=== PATIENT | female | born 1965 | race Hispanic/Latino ===

== ENCOUNTER 2017-12-31 21:18 | Emergency (ER) | payer MEDICAID ==
[~2017-12-31 21:18] MED LIST: AMBR5TAB3 PO; BUSP15TA3 PO; CYCL5TAB PO; DEXL60CA3 PO; HYDR200T4 PO; LACT10SO PO; LEVO75 PO; METO10TA3 PO; MULT-512 PO; MYCO500T5 PO; OCEAN NASAL; OLOP2.5D OU; PRED5TAB PO; PROP20TA7 PO; SPIR50TA5 PO; TADA5TAB3 PO; TRAM50TA4 PO; TRAZ-187 PO
[2017-12-31 23:38] LABS: BASOPHILS % (AUTO) 0.3 % (0.0-5.0); LYMPHOCYTES % (AUTO) 5.1 % (21.0-51.0); MEAN CORPUSCULAR HEMOGLOBIN 31.3 pg (27.0-33.0); MEAN CORPUSCULAR HGB CONC 34.5 g/dL (32.0-36.0); MEAN CORPUSCULAR VOLUME 90.8 fL (79-99); MONOCYTES % (AUTO) 5.8 % (3.0-13.0); NEUTROPHILS % (AUTO) 88.8 % (40.0-77.0); PLATELET COUNT (AUTO) 189 K/uL (130-400); RED BLOOD CELL COUNT(AUTO) 3.97 MIL/uL (4.00-5.50); RED CELL DISTRIBUTION WIDTH 14.5 % (11.0-15.5); WHITE BLOOD COUNT (AUTO) 9.5 K/uL (4.8-10.8)
[2017-12-31 23:40] LABS: CREATININE 0.9 mg/dL (0.5-1.5); POTASSIUM 4.4 mmol/L (3.5-5.1)
[2018-01-01] MEDS ORDERED: METHYLPREDNISOLONE SOD SUCC 125MG/2ML VIAL ONE (00:48)
== END 2018-01-01 02:31 | disposition home or self-care (01) ==
LOC: EDH 21:18
DX: J02.9 Acute pharyngitis, unspecified (principal); R60.0 Localized edema; M32.9 Systemic lupus erythematosus, unspecified; M19.90 Unspecified osteoarthritis, unspecified site; Z88.6 Allergy status to analgesic agent
CPT/HCPCS: 36415; 70490; 80048; 85025; 87040; 87880; 96374; 99285; J2930

== ENCOUNTER 2018-01-03 19:05 | Emergency (ER) | payer MEDICAID ==
[2018-01-03 19:57] LABS: BASOPHILS % (AUTO) 0.3 % (0.0-5.0); EOSINOPHILS % (AUTO) 0.1 % (0.0-8.0); HEMATOCRIT 39.4 % (36-48); LYMPHOCYTES % (AUTO) 6.2 % (21.0-51.0); MEAN CORPUSCULAR HEMOGLOBIN 30.4 pg (27.0-33.0); MEAN CORPUSCULAR HGB CONC 33.5 g/dL (32.0-36.0); MEAN CORPUSCULAR VOLUME 90.8 fL (79-99); MONOCYTES % (AUTO) 6.3 % (3.0-13.0); NEUTROPHILS % (AUTO) 87.1 % (40.0-77.0); PLATELET COUNT (AUTO) 187 K/uL (130-400); RED BLOOD CELL COUNT(AUTO) 4.34 MIL/uL (4.00-5.50); WHITE BLOOD COUNT (AUTO) 10.8 K/uL (4.8-10.8)
[2018-01-03 20:06] LABS: CREATININE 1.3 mg/dL (0.5-1.5); POTASSIUM 4.3 mmol/L (3.5-5.1)
[2018-01-03 20:07] LABS: INR 1.12 (0.85-1.15); PARTIAL THROMBOPLASTIN TIME 27.8 SEC (26.3-35.5); PROTHROMBIN TIME 11.7 SEC (9.6-11.6)
[2018-01-03 20:19] LABS: ALBUMIN 2.9 g/dL (3.5-5.0); CREATINE KINASE MB 0.8 ng/mL (0.5-3.6); CRP QUANTITATIVE 18.7 mg/L (0.00-9.0); TOTAL PROTEIN, SERUM 6.2 g/dL (6.0-8.3)
[2018-01-03 20:59] LABS: APPEARANCE,URINE Clear (CLEAR); BILIRUBIN,URINE Small (NEGATIVE); COLOR,URINE Dark Yellow (YELLOW); GLUCOSE, URINE (UA) Negative (NEGATIVE); KETONES,URINE Negative (NEGATIVE); LEUKOCYTE ESTERASE ,URINE Small (NEGATIVE); NITRATE,URINE Negative (NEGATIVE); OCCULT BLOOD,URINE Negative (NEGATIVE); PROTEIN,URINE Trace (NEGATIVE)
[2018-01-03 21:01] LABS: ERYTHROCYTE SEDIMENTATION RATE 5 MM/HR (0-15)
[2018-01-03 21:37] LABS: RBC,URINE 0-1 /HPF (0-1)
[2018-01-03 21:38] LABS: BACTERIA,URINE Few /HPF (None Seen); MUCUS,URINE Few LPF (None Seen); SQUAMOUS EPITHELIAL CELL,UR Few /HPF (0-2)
[2018-01-03] MEDS ORDERED: ONDANSETRON HCL MDV 20ML 2 MG/ML VIAL ONE (22:24)
== END 2018-01-03 23:02 | disposition home or self-care (01) ==
LOC: EDH 19:05
DX: K92.2 Gastrointestinal hemorrhage, unspecified (principal); N39.0 Urinary tract infection, site not specified; R03.0 Elevated blood-pressure reading, without diagnosis of hypertension; K74.60 Unspecified cirrhosis of liver; M19.90 Unspecified osteoarthritis, unspecified site; Z79.82 Long term (current) use of aspirin
CPT/HCPCS: 36415; 80053; 81001; 82270; 82550; 82553; 83690; 84484; 85014; 85018; 85025; 85610; 85651; 85730; 86140; 87088; 93005; 96365; 96375

== ENCOUNTER 2018-02-03 20:14 | Inpatient (IN) | payer MEDICAID ==
[~2018-02-03] VITALS: Ht 154.9 cm; Wt 90.3 kg
[2018-02-03] MEDS ORDERED: DEXTROSE 50%-WATER 50 ML DISP.SYRIN IV ONE (20:29)
[2018-02-03] MEDS ORDERED: SODIUM CHLORIDE 0.9% 500ML 500 ML IV ONE (20:32)
[2018-02-03 20:41] LABS: BASOPHILS % (AUTO) 0.3 % (0.0-5.0); HEMATOCRIT 31.1 % (36-48); LYMPHOCYTES % (AUTO) 5.8 % (21.0-51.0); MEAN CORPUSCULAR HEMOGLOBIN 32.4 pg (27.0-33.0); MEAN CORPUSCULAR HGB CONC 35.5 g/dL (32.0-36.0); MEAN CORPUSCULAR VOLUME 91.4 fL (79-99); MONOCYTES % (AUTO) 6.2 % (3.0-13.0); NEUTROPHILS % (AUTO) 87.7 % (40.0-77.0); PLATELET COUNT (AUTO) 167 K/uL (130-400); WHITE BLOOD COUNT (AUTO) 9.8 K/uL (4.8-10.8)
[2018-02-03 20:57] LABS: ALBUMIN 2.5 g/dL (3.5-5.0); BILIRUBIN,TOTAL 0.8 mg/dL (0.2-1.0); CREATININE 0.9 mg/dL (0.5-1.5); MAGNESIUM 1.4 mg/dL (1.80-2.40); POTASSIUM 5.5 mmol/L (3.5-5.1); TOTAL PROTEIN, SERUM 5.6 g/dL (6.0-8.3)
[2018-02-03] MEDS ORDERED: DEXTROSE 10%-WATER 1,000 ML IV ONE (21:23)
[2018-02-03] MEDS ORDERED: SODIUM POLYSTYRENE SULFONATE 15 GM/60 ML ML ONE (22:21)
[2018-02-03] MEDS ORDERED: ALBUTEROL SULFATE 0.083% 2.5 MG/3 ML INH IH ONE (22:24)
[2018-02-03] MEDS ORDERED: SODIUM CHLORIDE 0.9% 1000ML 1,000 ML IV SCH (23:34)
[2018-02-03 23:44] LABS: HEMOGLOBIN A1C 4.4 % (4.0-6.0)
[2018-02-03] MEDS ORDERED: DEXTROSE 50%-WATER 50 ML DISP.SYRIN IV PRN (23:45)
[2018-02-03] MEDS ORDERED: GLUCAGON 1MG KIT 1 MG ML IM PRN (23:45)
[2018-02-03] MEDS ORDERED: MAGNESIUM 2GM PREMIX 50ML 50 ML IV SCH (23:45)
[2018-02-03] MEDS ORDERED: ONDANSETRON HCL MDV 20ML 2 MG/ML VIAL IV PRN (23:45)
[2018-02-03 23:47] LABS: APPEARANCE,URINE Clear (CLEAR); BILIRUBIN,URINE Negative (NEGATIVE); COLOR,URINE Yellow (YELLOW); GLUCOSE, URINE (UA) Negative (NEGATIVE); KETONES,URINE Negative (NEGATIVE); LEUKOCYTE ESTERASE ,URINE Trace (NEGATIVE); NITRATE,URINE Negative (NEGATIVE); OCCULT BLOOD,URINE Negative (NEGATIVE); PROTEIN,URINE Negative (NEGATIVE); UROBILINOGEN,URINE 0.2 mg/dL (0.2-1.0)
[2018-02-04 00:03] LABS: BACTERIA,URINE Rare /HPF (None Seen); RBC,URINE None Seen /HPF (0-1); SQUAMOUS EPITHELIAL CELL,UR None Seen /HPF (0-2); WBC,URINE 0-1 /HPF (0-1)
[2018-02-04] MEDS ORDERED: MAGNESIUM 2GM PREMIX 50ML 50 ML IV ONE (01:18)
[2018-02-04 04:16] LABS: BASOPHILS % (AUTO) 0.4 % (0.0-5.0); HEMATOCRIT 30.3 % (36-48); LYMPHOCYTES % (AUTO) 14.8 % (21.0-51.0); MEAN CORPUSCULAR HEMOGLOBIN 31.1 pg (27.0-33.0); MEAN CORPUSCULAR HGB CONC 33.7 g/dL (32.0-36.0); MEAN CORPUSCULAR VOLUME 92.5 fL (79-99); MONOCYTES % (AUTO) 8.8 % (3.0-13.0); PLATELET COUNT (AUTO) 105 K/uL (130-400); RED BLOOD CELL COUNT(AUTO) 3.28 MIL/uL (4.00-5.50); RED CELL DISTRIBUTION WIDTH 16.2 % (11.0-15.5); WHITE BLOOD COUNT (AUTO) 5.2 K/uL (4.8-10.8)
[2018-02-04 04:22] LABS: CREATININE 0.7 mg/dL (0.5-1.5); POTASSIUM 4.4 mmol/L (3.5-5.1)
[2018-02-04] MEDS ORDERED: DEXTROSE 25%-WATER 2.5 GM/10 ML SYG [INFANT] IVP ONE (04:30)
[2018-02-04 08:00] VITALS: BP 103/45
[2018-02-04] MEDS ORDERED: VANCOMYCIN PROTOCOL PER PHARMACY IV PRN (09:45)
[2018-02-04] MEDS ORDERED: VANCOMYCIN 1GM+NS 250ML 250 ML IV SCH (09:45)
[2018-02-04] MEDS ORDERED: CEFTRIAXONE 1GM/D5W 50ML 50 ML IV SCH (09:45)
[2018-02-04] MEDS: PANTOPRAZOLE SODIUM 40 MG TABLET.DR PO SCH (09:56)
[2018-02-04] MEDS: DEXTROSE 10%-WATER 1,000 ML IV SCH ×3 (09:56→22:49)
[2018-02-04] MEDS: LACTULOSE 20 GM/30 ML UDCUP PO SCH ×2 (09:56→20:33)
[2018-02-04] MEDS ORDERED: COMPOUND IV REFRIGERATED 1 EACH IVSOLN MISC PRN (10:15)
[2018-02-04] MEDS ORDERED: VANCOMYCIN PROTOCOL PER PHARMACY IV SCH (10:15)
[2018-02-04 11:00] VITALS: BP 117/59
[2018-02-04] MEDS: VANCOMYCIN 1.5 GM in SODIUM CHLORIDE 0.9% 250 ML IV SCH ×2 (13:10→22:49)
[2018-02-04] MEDS: CEFTRIAXONE SODIUM 1 GM IVP SCH (13:10)
[2018-02-04] MEDS ORDERED: FURO20TA4 PO (13:26)
[2018-02-04] MEDS ORDERED: HYDR-4068 PO (13:26)
[2018-02-04] MEDS ORDERED: HYDR-3830 PO (13:26)
[2018-02-04] MEDS ORDERED: POTA20TA82 PO (13:26)
[2018-02-04] MEDS ORDERED: FERR-82 PO (13:26)
[2018-02-04] MEDS ORDERED: MYCO250C36 PO (13:26)
[2018-02-04] MEDS ORDERED: OMEP20TA25 PO (13:26)
[2018-02-04] MEDS ORDERED: SUCR1TAB2 PO (13:26)
[2018-02-04 16:00] VITALS: BP 144/62
[2018-02-04 19:36] VITALS: BP 118/51
[2018-02-04 23:53] VITALS: BP 129/63
[2018-02-05 04:00] VITALS: BP 114/57
[2018-02-05 07:10] LABS: HEMATOCRIT 33.9 % (36-48); MEAN CORPUSCULAR HEMOGLOBIN 30.8 pg (27.0-33.0); MEAN CORPUSCULAR HGB CONC 33.1 g/dL (32.0-36.0); NUCLEATED RED BLOOD CELLS 0.1 % (0.0-0.19); PLATELET COUNT (AUTO) 131 K/uL (130-400); RED BLOOD CELL COUNT(AUTO) 3.65 MIL/uL (4.00-5.50); RED CELL DISTRIBUTION WIDTH 16.6 % (11.0-15.5); WHITE BLOOD COUNT (AUTO) 6.1 K/uL (4.8-10.8)
[2018-02-05 07:52] LABS: CREATININE 0.7 mg/dL (0.5-1.5); POTASSIUM 3.2 mmol/L (3.5-5.1)
[2018-02-05 08:00] VITALS: BP 151/73
[2018-02-05] MEDS: THIAMINE HCL 100 MG TABLET PO SCH (08:36)
[2018-02-05] MEDS: PANTOPRAZOLE SODIUM 40 MG TABLET.DR PO SCH (08:36)
[2018-02-05] MEDS: MULTIVITAMIN TABLET PO SCH (08:36)
[2018-02-05] MEDS: LACTULOSE 20 GM/30 ML UDCUP PO SCH ×2 (08:36→21:28)
[2018-02-05] MEDS: FOLIC ACID 1 MG TABLET PO SCH (08:36)
[2018-02-05] MEDS: DEXTROSE 10%-WATER 1,000 ML IV SCH ×3 (08:36→17:57)
[2018-02-05] MEDS: HYDROCORTISONE SOD SUCCINATE 100 MG/2 ML VIAL IV SCH ×3 (09:15→21:28)
[2018-02-05] MEDS ORDERED: LACTULOSE 20 GM/30 ML UDCUP PO PRN (09:45)
[2018-02-05] MEDS ORDERED: HYDROXYZINE HCL 10 MG TABLET PO PRN (09:45)
[2018-02-05 11:00] VITALS: BP 141/70
[2018-02-05] MEDS: METOCLOPRAMIDE 10 MG TABLET PO SCH ×3 (11:41→21:29)
[2018-02-05] MEDS: CEFTRIAXONE SODIUM 1 GM IVP SCH (11:41)
[2018-02-05] MEDS: SUCRALFATE 1 GM TABLET PO SCH ×3 (11:41→21:28)
[2018-02-05] MEDS: HYDROCODONE/ACETAMINOPHEN 10/325 MG TAB PO PRN ×2 (11:42→21:30)
[2018-02-05] MEDS: VANCOMYCIN 1.5 GM in SODIUM CHLORIDE 0.9% 250 ML IV SCH ×2 (11:42→22:30)
[2018-02-05] MEDS: FERROUS SULFATE 325 MG TABLET.DR PO SCH (11:55)
[2018-02-05 16:00] VITALS: BP 136/68
[2018-02-05] MEDS: SPIRONOLACTONE 25 MG TAB PO SCH ×2 (17:06→21:28)
[2018-02-05 19:50] VITALS: BP 153/72
[2018-02-05] MEDS ORDERED: CYCLOBENZAPRINE HCL 10 MG TABLET PO PRN (21:00)
[2018-02-05] MEDS ORDERED: MYCOPHENOLATE MOFETIL 250 MG CAPSULE PO SCH (21:00)
[2018-02-05] MEDS: TRAZODONE HCL 100 MG TABLET PO SCH (21:28)
[2018-02-05] MEDS: POTASSIUM CHLORIDE 20 MEQ ERTAB PO SCH (21:29)
[2018-02-05 23:15] VITALS: BP 135/72
[2018-02-06 03:50] VITALS: BP 122/66
[2018-02-06 05:28] LABS: CREATININE 0.7 mg/dL (0.5-1.5); POTASSIUM 3.8 mmol/L (3.5-5.1)
[2018-02-06 05:29] LABS: HEMATOCRIT 31.6 % (36-48); MEAN CORPUSCULAR HEMOGLOBIN 31.1 pg (27.0-33.0); MEAN CORPUSCULAR HGB CONC 33.7 g/dL (32.0-36.0); MEAN CORPUSCULAR VOLUME 92.4 fL (79-99); PLATELET COUNT (AUTO) 123 K/uL (130-400); RED BLOOD CELL COUNT(AUTO) 3.43 MIL/uL (4.00-5.50); RED CELL DISTRIBUTION WIDTH 15.9 % (11.0-15.5)
[2018-02-06] MEDS: SUCRALFATE 1 GM TABLET PO SCH ×4 (06:22→20:17)
[2018-02-06] MEDS: METOCLOPRAMIDE 10 MG TABLET PO SCH ×4 (06:22→20:17)
[2018-02-06] MEDS: LEVOTHYROXINE 75 MCG TABLET PO SCH (06:22)
[2018-02-06] MEDS: VANCOMYCIN 1.25 GM in SODIUM CHLORIDE 0.9% 250 ML IV SCH ×2 (07:53→20:18)
[2018-02-06] MEDS: SPIRONOLACTONE 25 MG TAB PO SCH ×3 (07:53→20:17)
[2018-02-06] MEDS: THIAMINE HCL 100 MG TABLET PO SCH (07:54)
[2018-02-06] MEDS: LACTULOSE 20 GM/30 ML UDCUP PO SCH ×2 (07:54→20:18)
[2018-02-06] MEDS: HYDROXYCHLOROQUINE SULFATE 200 MG TAB PO SCH (07:54)
[2018-02-06] MEDS: PANTOPRAZOLE SODIUM 40 MG TABLET.DR PO SCH (07:54)
[2018-02-06] MEDS: FERROUS SULFATE 325 MG TABLET.DR PO SCH (07:54)
[2018-02-06] MEDS: FOLIC ACID 1 MG TABLET PO SCH (07:54)
[2018-02-06] MEDS: MULTIVITAMIN TABLET PO SCH (07:54)
[2018-02-06] MEDS: HYDROCORTISONE SOD SUCCINATE 100 MG/2 ML VIAL IV SCH ×3 (07:55→20:18)
[2018-02-06] MEDS: ENOXAPARIN SODIUM 40 MG/0.4 ML SYRINGE SQ SCH (07:58)
[2018-02-06 08:00] VITALS: BP 148/71
[2018-02-06] MEDS: LETAIRIS 5 MG PO SCH (08:00)
[2018-02-06] MEDS: TADALAFIL 20 MG PO SCH (08:00)
[2018-02-06] MEDS: POTASSIUM CHLORIDE 20 MEQ ERTAB PO SCH ×2 (08:01→20:17)
[2018-02-06] MEDS: CEFTRIAXONE SODIUM 1 GM IVP SCH (11:19)
[2018-02-06 12:00] VITALS: BP 149/69
[2018-02-06] MEDS: HYDROCODONE/ACETAMINOPHEN 10/325 MG TAB PO PRN ×2 (13:59→20:27)
[2018-02-06] MEDS: DEXTROSE 10%-WATER 1,000 ML IV SCH (15:39)
[2018-02-06 16:00] VITALS: BP 139/68
[2018-02-06 19:30] VITALS: BP 133/69
[2018-02-06] MEDS: TRAZODONE HCL 100 MG TABLET PO SCH (20:17)
[2018-02-06 23:23] VITALS: BP 127/61
[2018-02-07] MEDS: DEXTROSE 10%-WATER 1,000 ML IV SCH (00:26)
[2018-02-07] MEDS: HYDROCODONE/ACETAMINOPHEN 10/325 MG TAB PO PRN ×3 (00:29→18:34)
[2018-02-07 03:40] VITALS: BP 125/62
[2018-02-07 04:18] LABS: HEMATOCRIT 30.1 % (36-48); MEAN CORPUSCULAR HEMOGLOBIN 32.4 pg (27.0-33.0); MEAN CORPUSCULAR HGB CONC 34.9 g/dL (32.0-36.0); MEAN CORPUSCULAR VOLUME 92.8 fL (79-99); PLATELET COUNT (AUTO) 133 K/uL (130-400); RED BLOOD CELL COUNT(AUTO) 3.25 MIL/uL (4.00-5.50); RED CELL DISTRIBUTION WIDTH 16.4 % (11.0-15.5); WHITE BLOOD COUNT (AUTO) 6.1 K/uL (4.8-10.8)
[2018-02-07 04:36] LABS: CREATININE 0.9 mg/dL (0.5-1.5)
[2018-02-07] MEDS: LEVOTHYROXINE 75 MCG TABLET PO SCH (05:26)
[2018-02-07] MEDS: METOCLOPRAMIDE 10 MG TABLET PO SCH ×4 (05:48→21:40)
[2018-02-07] MEDS: SUCRALFATE 1 GM TABLET PO SCH ×4 (05:48→21:40)
[2018-02-07] MEDS: VANCOMYCIN 1.25 GM in SODIUM CHLORIDE 0.9% 250 ML IV SCH ×2 (05:48→18:30)
[2018-02-07 07:10] VITALS: BP 125/61
[2018-02-07] MEDS: SPIRONOLACTONE 25 MG TAB PO SCH ×3 (08:53→21:40)
[2018-02-07] MEDS: THIAMINE HCL 100 MG TABLET PO SCH (08:53)
[2018-02-07] MEDS: FOLIC ACID 1 MG TABLET PO SCH (08:53)
[2018-02-07] MEDS: PANTOPRAZOLE SODIUM 40 MG TABLET.DR PO SCH (08:54)
[2018-02-07] MEDS: POTASSIUM CHLORIDE 20 MEQ ERTAB PO SCH ×2 (08:55→21:40)
[2018-02-07] MEDS: HYDROXYCHLOROQUINE SULFATE 200 MG TAB PO SCH (08:55)
[2018-02-07] MEDS: HYDROCORTISONE SOD SUCCINATE 100 MG/2 ML VIAL IV SCH ×3 (08:55→21:39)
[2018-02-07] MEDS: FERROUS SULFATE 325 MG TABLET.DR PO SCH (08:55)
[2018-02-07] MEDS: MULTIVITAMIN TABLET PO SCH (08:55)
[2018-02-07] MEDS: LACTULOSE 20 GM/30 ML UDCUP PO SCH ×2 (08:56→21:40)
[2018-02-07] MEDS: LETAIRIS 5 MG PO SCH (08:59)
[2018-02-07] MEDS: TADALAFIL 20 MG PO SCH (08:59)
[2018-02-07] MEDS: ENOXAPARIN SODIUM 40 MG/0.4 ML SYRINGE SQ SCH (08:59)
[2018-02-07 11:00] VITALS: BP 148/81
[2018-02-07] MEDS: PREDNISONE 5 MG TABLET PO SCH (12:35)
[2018-02-07] MEDS: CEFTRIAXONE SODIUM 1 GM IVP SCH (12:35)
[2018-02-07 15:00] VITALS: BP 149/72
[2018-02-07] MEDS: HONEY 1 APPL/ML TUBE TP SCH (15:41)
[2018-02-07 19:55] VITALS: BP 138/71
[2018-02-07] MEDS: TRAZODONE HCL 100 MG TABLET PO SCH (21:40)
[2018-02-08] VITALS: BP 129/66
[2018-02-08 03:30] VITALS: BP 131/67
[2018-02-08] MEDS: SUCRALFATE 1 GM TABLET PO SCH ×4 (05:43→20:43)
[2018-02-08] MEDS: VANCOMYCIN 1.25 GM in SODIUM CHLORIDE 0.9% 250 ML IV SCH (06:48)
[2018-02-08] MEDS: METOCLOPRAMIDE 10 MG TABLET PO SCH ×4 (06:48→22:07)
[2018-02-08] MEDS: LEVOTHYROXINE 75 MCG TABLET PO SCH (06:48)
[2018-02-08 08:52] VITALS: BP 146/71
[2018-02-08] MEDS: LETAIRIS 5 MG PO SCH (09:00)
[2018-02-08] MEDS: TADALAFIL 20 MG PO SCH (09:00)
[2018-02-08] MEDS ORDERED: SIMETHICONE 80 MG TAB.CHEW PO PRN (09:30)
[2018-02-08] MEDS: CEFTRIAXONE SODIUM 1 GM IVP SCH (09:58)
[2018-02-08] MEDS: PREDNISONE 5 MG TABLET PO SCH (09:58)
[2018-02-08] MEDS: SPIRONOLACTONE 25 MG TAB PO SCH ×3 (09:58→22:06)
[2018-02-08] MEDS: FOLIC ACID 1 MG TABLET PO SCH (10:03)
[2018-02-08] MEDS: MULTIVITAMIN TABLET PO SCH (10:03)
[2018-02-08] MEDS: PANTOPRAZOLE SODIUM 40 MG TABLET.DR PO SCH (10:03)
[2018-02-08] MEDS: ENOXAPARIN SODIUM 40 MG/0.4 ML SYRINGE SQ SCH (10:03)
[2018-02-08] MEDS: POTASSIUM CHLORIDE 20 MEQ ERTAB PO SCH ×2 (10:03→22:07)
[2018-02-08] MEDS: THIAMINE HCL 100 MG TABLET PO SCH (10:04)
[2018-02-08] MEDS: HYDROXYCHLOROQUINE SULFATE 200 MG TAB PO SCH (10:04)
[2018-02-08] MEDS: FERROUS SULFATE 325 MG TABLET.DR PO SCH (10:04)
[2018-02-08] MEDS: LACTULOSE 20 GM/30 ML UDCUP PO SCH ×2 (10:04→22:06)
[2018-02-08 12:00] VITALS: BP 142/76
[2018-02-08] MEDS: HYDROCODONE/ACETAMINOPHEN 10/325 MG TAB PO PRN (14:54)
[2018-02-08 16:00] VITALS: BP 154/72
[2018-02-08 20:10] VITALS: BP 147/70
[2018-02-08] MEDS: VANCOMYCIN 1GM+NS 250ML 250 ML IV SCH (22:07)
[2018-02-08] MEDS: TRAZODONE HCL 100 MG TABLET PO SCH (22:08)
[2018-02-09] MEDS: HYDROCODONE/ACETAMINOPHEN 10/325 MG TAB PO PRN ×3 (00:20→23:22)
[2018-02-09 00:35] VITALS: BP 137/63
[2018-02-09 04:00] VITALS: BP 123/64
[2018-02-09 04:49] LABS: HEMATOCRIT 31.4 % (36-48); MEAN CORPUSCULAR HEMOGLOBIN 32.2 pg (27.0-33.0); MEAN CORPUSCULAR HGB CONC 34.2 g/dL (32.0-36.0); PLATELET COUNT (AUTO) 121 K/uL (130-400); RED BLOOD CELL COUNT(AUTO) 3.34 MIL/uL (4.00-5.50); RED CELL DISTRIBUTION WIDTH 16.2 % (11.0-15.5); WHITE BLOOD COUNT (AUTO) 7.8 K/uL (4.8-10.8)
[2018-02-09 05:12] LABS: CREATININE 0.9 mg/dL (0.5-1.5); POTASSIUM 3.3 mmol/L (3.5-5.1)
[2018-02-09] MEDS: SUCRALFATE 1 GM TABLET PO SCH ×4 (06:09→21:21)
[2018-02-09] MEDS: METOCLOPRAMIDE 10 MG TABLET PO SCH ×4 (06:42→21:23)
[2018-02-09] MEDS: LEVOTHYROXINE 75 MCG TABLET PO SCH (06:42)
[2018-02-09 08:00] VITALS: BP 121/54
[2018-02-09] MEDS: TADALAFIL 20 MG PO SCH (09:00)
[2018-02-09] MEDS: LETAIRIS 5 MG PO SCH (09:00)
[2018-02-09] MEDS: HONEY 1 APPL/ML TUBE TP SCH (09:00)
[2018-02-09] MEDS: VANCOMYCIN 1GM+NS 250ML 250 ML IV SCH ×2 (09:11→21:21)
[2018-02-09] MEDS: HYDROXYCHLOROQUINE SULFATE 200 MG TAB PO SCH (09:12)
[2018-02-09] MEDS: ENOXAPARIN SODIUM 40 MG/0.4 ML SYRINGE SQ SCH (09:12)
[2018-02-09] MEDS: MULTIVITAMIN TABLET PO SCH (09:13)
[2018-02-09] MEDS: PREDNISONE 5 MG TABLET PO SCH ×2 (09:13→21:22)
[2018-02-09] MEDS: FOLIC ACID 1 MG TABLET PO SCH (09:13)
[2018-02-09] MEDS: LACTULOSE 20 GM/30 ML UDCUP PO SCH ×2 (09:13→21:22)
[2018-02-09] MEDS: FERROUS SULFATE 325 MG TABLET.DR PO SCH (09:14)
[2018-02-09] MEDS: PANTOPRAZOLE SODIUM 40 MG TABLET.DR PO SCH (09:14)
[2018-02-09] MEDS: SPIRONOLACTONE 25 MG TAB PO SCH ×3 (09:14→21:21)
[2018-02-09] MEDS: THIAMINE HCL 100 MG TABLET PO SCH (09:14)
[2018-02-09] MEDS: POTASSIUM CHLORIDE 20 MEQ ERTAB PO SCH ×2 (09:14→21:22)
[2018-02-09] MEDS: CEFTRIAXONE SODIUM 1 GM IVP SCH (11:30)
[2018-02-09 11:44] VITALS: BP 142/56
[2018-02-09 15:56] VITALS: BP 131/71
[2018-02-09] MEDS: TRAZODONE HCL 100 MG TABLET PO SCH (21:22)
[2018-02-09 22:07] VITALS: BP 147/67
[2018-02-10 00:20] VITALS: BP 124/63
[2018-02-10 04:00] VITALS: BP 135/64
[2018-02-10 05:28] LABS: HEMATOCRIT 29.8 % (36-48); MEAN CORPUSCULAR HEMOGLOBIN 31.5 pg (27.0-33.0); MEAN CORPUSCULAR HGB CONC 33.5 g/dL (32.0-36.0); MEAN CORPUSCULAR VOLUME 94.1 fL (79-99); PLATELET COUNT (AUTO) 115 K/uL (130-400); RED BLOOD CELL COUNT(AUTO) 3.16 MIL/uL (4.00-5.50); RED CELL DISTRIBUTION WIDTH 16.8 % (11.0-15.5); WHITE BLOOD COUNT (AUTO) 7.8 K/uL (4.8-10.8)
[2018-02-10 05:33] LABS: CREATININE 0.9 mg/dL (0.5-1.5); POTASSIUM 3.7 mmol/L (3.5-5.1)
[2018-02-10] MEDS: METOCLOPRAMIDE 10 MG TABLET PO SCH ×2 (06:24→12:32)
[2018-02-10] MEDS: LEVOTHYROXINE 75 MCG TABLET PO SCH (06:24)
[2018-02-10] MEDS: SUCRALFATE 1 GM TABLET PO SCH ×2 (06:24→12:32)
[2018-02-10 08:00] VITALS: BP 135/68
[2018-02-10] MEDS: VANCOMYCIN 1GM+NS 250ML 250 ML IV SCH (09:00)
[2018-02-10] MEDS ORDERED: AMOX-426 PO (09:00)
[2018-02-10] MEDS: TADALAFIL 20 MG PO SCH (09:00)
[2018-02-10] MEDS: LETAIRIS 5 MG PO SCH (09:00)
[2018-02-10] MEDS: HONEY 1 APPL/ML TUBE TP SCH (09:00)
[2018-02-10] MEDS: PREDNISONE 5 MG TABLET PO SCH (09:50)
[2018-02-10] MEDS: LACTULOSE 20 GM/30 ML UDCUP PO SCH (09:50)
[2018-02-10] MEDS: ENOXAPARIN SODIUM 40 MG/0.4 ML SYRINGE SQ SCH (09:50)
[2018-02-10] MEDS: POTASSIUM CHLORIDE 20 MEQ ERTAB PO SCH (09:50)
[2018-02-10] MEDS: PANTOPRAZOLE SODIUM 40 MG TABLET.DR PO SCH (09:50)
[2018-02-10] MEDS: CEFTRIAXONE SODIUM 1 GM IVP SCH (09:50)
[2018-02-10] MEDS: FERROUS SULFATE 325 MG TABLET.DR PO SCH (09:51)
[2018-02-10] MEDS: THIAMINE HCL 100 MG TABLET PO SCH (09:51)
[2018-02-10] MEDS: HYDROXYCHLOROQUINE SULFATE 200 MG TAB PO SCH (09:51)
[2018-02-10] MEDS: FOLIC ACID 1 MG TABLET PO SCH (09:51)
[2018-02-10] MEDS: SPIRONOLACTONE 25 MG TAB PO SCH (09:51)
[2018-02-10] MEDS: MULTIVITAMIN TABLET PO SCH (09:51)
[2018-02-10 11:00] VITALS: BP 138/69
[2018-02-10] MEDS: HYDROCODONE/ACETAMINOPHEN 10/325 MG TAB PO PRN (12:33)
== END 2018-02-10 13:24 | disposition home or self-care (01) | DRG 468 ==
LOC: EDH 20:14 → EDHIP 22:33 → OBSVTOIN 22:33 → 3DH 02-04 08:30
PROVIDERS: ADMIT Family Medicine; ATTEND Family Medicine
DX: N28.9 Disorder of kidney and ureter, unspecified (principal); E87.2 Acidosis; L03.115 Cellulitis of right lower limb; M34.1 CR(E)ST syndrome; E83.42 Hypomagnesemia; E44.1 Mild protein-calorie malnutrition; K72.90 Hepatic failure, unspecified without coma; E87.1 Hypo-osmolality and hyponatremia; E87.5 Hyperkalemia; E16.2 Hypoglycemia, unspecified; E87.6 Hypokalemia; L03.116 Cellulitis of left lower limb; M06.9 Rheumatoid arthritis, unspecified; I25.10 Atherosclerotic heart disease of native coronary artery without angina pectoris; F10.10 Alcohol abuse, uncomplicated; K70.30 Alcoholic cirrhosis of liver without ascites; Z88.6 Allergy status to analgesic agent; Z68.37 Body mass index [BMI] 37.0-37.9, adult; Z90.49 Acquired absence of other specified parts of digestive tract
CPT/HCPCS: 36415; 80048; 80053; 80202; 81001; 82140; 82533; 82947; 82948; 83036; 83690; 83735; 84443; 84484; 85025; 85027; 87040; 94640; 99291; A4218; G0480; J0696; J1650; J1720; J3370; J3475; J3490; J7030; J7040; J7070; J7512

== ENCOUNTER 2018-02-18 16:05 | Inpatient (IN) | payer MEDICAID ==
[~2018-02-18] VITALS: Ht 152.4 cm; Wt 90.0 kg
[~2018-02-18 16:05] MED LIST changes: +AMOX-426 PO; -BUSP15TA3 PO; +FERR-82 PO; +FURO20TA4 PO; +HYDR-3830 PO; +HYDR-4068 PO; -MULT-512 PO; +MYCO250C36 PO; -MYCO500T5 PO; -OLOP2.5D OU; +OMEP20TA25 PO; +POTA20TA82 PO; -PROP20TA7 PO; +SUCR1TAB2 PO; -TRAM50TA4 PO
[2018-02-18 16:31] LABS: APPEARANCE,URINE Clear (CLEAR); BILIRUBIN,URINE Negative (NEGATIVE); COLOR,URINE Yellow (YELLOW); GLUCOSE, URINE (UA) Negative (NEGATIVE); KETONES,URINE Negative (NEGATIVE); LEUKOCYTE ESTERASE ,URINE Small (NEGATIVE); NITRATE,URINE Negative (NEGATIVE); OCCULT BLOOD,URINE Negative (NEGATIVE); PH,URINE 7.5 (5.0-8.0); PROTEIN,URINE Negative (NEGATIVE); UROBILINOGEN,URINE 0.2 mg/dL (0.2-1.0)
[2018-02-18 16:42] LABS: BACTERIA,URINE None Seen /HPF (None Seen); RBC,URINE None Seen /HPF (0-1); SQUAMOUS EPITHELIAL CELL,UR 0-2 /HPF (0-2); TRANSITIONAL EPI CELLS,URINE Few /HPF (None Seen)
[2018-02-18 16:56] LABS: BASOPHILS % (AUTO) 0.1 % (0.0-5.0); HEMATOCRIT 28.5 % (36-48); LYMPHOCYTES % (AUTO) 3.1 % (21.0-51.0); MEAN CORPUSCULAR HEMOGLOBIN 32.7 pg (27.0-33.0); MEAN CORPUSCULAR HGB CONC 35.2 g/dL (32.0-36.0); MEAN CORPUSCULAR VOLUME 92.8 fL (79-99); MONOCYTES % (AUTO) 8.9 % (3.0-13.0); NEUTROPHILS % (AUTO) 87.9 % (40.0-77.0); PLATELET COUNT (AUTO) 126 K/uL (130-400); RED BLOOD CELL COUNT(AUTO) 3.07 MIL/uL (4.00-5.50); RED CELL DISTRIBUTION WIDTH 16.2 % (11.0-15.5); WHITE BLOOD COUNT (AUTO) 13.6 K/uL (4.8-10.8)
[2018-02-18] MEDS ORDERED: ONDANSETRON HCL 4 MG/2 ML VIAL ONE (17:13)
[2018-02-18 17:26] LABS: ALBUMIN 2.3 g/dL (3.5-5.0); BILIRUBIN,TOTAL 0.5 mg/dL (0.2-1.0); CREATININE 1.4 mg/dL (0.5-1.5); POTASSIUM 4.8 mmol/L (3.5-5.1); TOTAL PROTEIN, SERUM 4.9 g/dL (6.0-8.3)
[2018-02-18 17:36] LABS: LYMPHOCYTES % (MANUAL) 4 % (22-44); MONOCYTES % (MANUAL) 5 % (2-9); SEGMENTED NEUTROPHILS % 91 % (40-70)
[2018-02-18 17:37] LABS: PLATELET MORPHOLOGY COMMENT ADEQUATE
[2018-02-18 17:37] LABS: RAPID GROUP A STREP NEGATIVE (NEGATIVE)
[2018-02-18] MEDS ORDERED: CEFTRIAXONE SODIUM 1 GM ONE (19:30)
[2018-02-18] MEDS ORDERED: DEXTROSE 50%-WATER 50 ML DISP.SYRIN IV PRN (22:30)
[2018-02-18] MEDS ORDERED: GLUCAGON 1MG KIT 1 MG ML IM PRN (22:30)
[2018-02-18 23:23] VITALS: BP 100/46
[2018-02-19 03:23] VITALS: BP 105/51
[2018-02-19 06:19] LABS: HEMATOCRIT 28.9 % (36-48); MEAN CORPUSCULAR HEMOGLOBIN 32.8 pg (27.0-33.0); MEAN CORPUSCULAR HGB CONC 35.4 g/dL (32.0-36.0); MEAN CORPUSCULAR VOLUME 92.7 fL (79-99); PLATELET COUNT (AUTO) 127 K/uL (130-400); RED BLOOD CELL COUNT(AUTO) 3.12 MIL/uL (4.00-5.50); RED CELL DISTRIBUTION WIDTH 16.1 % (11.0-15.5); WHITE BLOOD COUNT (AUTO) 10.1 K/uL (4.8-10.8)
[2018-02-19 06:41] LABS: ALBUMIN 2.1 g/dL (3.5-5.0); BILIRUBIN,TOTAL 0.5 mg/dL (0.2-1.0); CREATININE 1.2 mg/dL (0.5-1.5); POTASSIUM 4.1 mmol/L (3.5-5.1); TOTAL PROTEIN, SERUM 4.7 g/dL (6.0-8.3)
[2018-02-19 07:00] VITALS: BP 112/50
[2018-02-19] MEDS: FAMOTIDINE/PF 20 MG/2 ML VIAL IV SCH ×2 (09:44→22:51)
[2018-02-19 11:00] VITALS: BP 114/56
[2018-02-19] MEDS ORDERED: CEFTRIAXONE 1GM/D5W 50ML 50 ML IV SCH (13:45)
[2018-02-19] MEDS: ACETAMINOPHEN EXTRA STRENGTH 500 MG TABLET PO SCH (14:00)
[2018-02-19] MEDS ORDERED: SODIUM CHLORIDE 0.9% 1000ML 1,000 ML IV ONE (15:43)
[2018-02-19 16:00] VITALS: BP 116/55
[2018-02-19] MEDS: SODIUM CHLORIDE 0.9% 1000ML 1,000 ML IV SCH (16:05)
[2018-02-19 20:00] VITALS: BP 114/58
[2018-02-19] MEDS: HONEY 1 APPL/ML TUBE TP SCH (22:51)
[2018-02-19] MEDS: CEFTRIAXONE SODIUM 1 GM IVP SCH (22:51)
[2018-02-19] MEDS ORDERED: MEPERIDINE HCL/PF 25 MG/ML 1ML VIAL IM ONE (23:30)
[2018-02-19] MEDS ORDERED: MEPERIDINE-PF 50 MG/ML SYG ONE (23:51)
[2018-02-20] VITALS: BP 106/50
[2018-02-20 04:00] VITALS: BP 126/64
[2018-02-20] MEDS: SODIUM CHLORIDE 0.9% 1000ML 1,000 ML IV SCH ×2 (05:42→15:34)
[2018-02-20 08:28] VITALS: BP 133/67
[2018-02-20] MEDS: ACETAMINOPHEN EXTRA STRENGTH 500 MG TABLET PO SCH (10:01)
[2018-02-20] MEDS ORDERED: ACETAMINOPHEN-CODEINE 300/30MG TAB ONE (10:30)
[2018-02-20] MEDS: FAMOTIDINE/PF 20 MG/2 ML VIAL IV SCH ×2 (10:40→21:27)
[2018-02-20] MEDS: HONEY 1 APPL/ML TUBE TP SCH (10:41)
[2018-02-20 11:22] VITALS: BP 111/60
[2018-02-20] MEDS ORDERED: HYDROXYZINE HCL 10 MG TABLET PO PRN (12:15)
[2018-02-20 12:29] LABS: POTASSIUM 4.5 mmol/L (3.5-5.1)
[2018-02-20] MEDS ORDERED: LACTULOSE 20 GM/30 ML UDCUP PO PRN (12:30)
[2018-02-20] MEDS ORDERED: CYCLOBENZAPRINE HCL 10 MG TABLET PO PRN (12:30)
[2018-02-20 12:34] LABS: BILIRUBIN,TOTAL 0.4 mg/dL (0.2-1.0); TOTAL PROTEIN, SERUM 4.8 g/dL (6.0-8.3)
[2018-02-20] MEDS: SUCRALFATE 1 GM TABLET PO SCH ×2 (15:30→21:27)
[2018-02-20] MEDS: SPIRONOLACTONE 25 MG TAB PO SCH ×2 (15:31→21:28)
[2018-02-20] MEDS: ACETAMINOPHEN-CODEINE 300/30MG TAB PO PRN ×2 (15:32→23:04)
[2018-02-20] MEDS: METOCLOPRAMIDE 10 MG TABLET PO SCH ×2 (15:32→21:28)
[2018-02-20 16:02] VITALS: BP 115/55
[2018-02-20] MEDS ORDERED: FUROSEMIDE 10 MG/ML 2ML VIAL IV SCH (17:15)
[2018-02-20] MEDS: DEXTROSE 5 % AND 0.9 % NACL 1,000 ML IV SCH (18:07)
[2018-02-20 19:25] VITALS: BP 124/58
[2018-02-20] MEDS ORDERED: TRAZODONE HCL 100 MG TABLET PO SCH (21:00)
[2018-02-20] MEDS: CEFTRIAXONE SODIUM 1 GM IVP SCH (21:27)
[2018-02-20] MEDS: MYCOPHENOLATE MOFETIL 250 MG CAPSULE PO SCH (21:29)
[2018-02-21 00:15] VITALS: BP 121/62
[2018-02-21 04:15] VITALS: BP 116/61
[2018-02-21] MEDS ORDERED: LEVOTHYROXINE 75 MCG TABLET PO SCH (06:30)
[2018-02-21] MEDS: METOCLOPRAMIDE 10 MG TABLET PO SCH ×3 (06:31→17:15)
[2018-02-21] MEDS: SUCRALFATE 1 GM TABLET PO SCH ×3 (06:31→17:15)
[2018-02-21 07:57] VITALS: BP 137/63
[2018-02-21] MEDS: FAMOTIDINE/PF 20 MG/2 ML VIAL IV SCH (08:27)
[2018-02-21] MEDS: DEXTROSE 5 % AND 0.9 % NACL 1,000 ML IV SCH (08:27)
[2018-02-21] MEDS: SPIRONOLACTONE 25 MG TAB PO SCH ×2 (08:29→15:28)
[2018-02-21] MEDS: MYCOPHENOLATE MOFETIL 250 MG CAPSULE PO SCH (08:29)
[2018-02-21] MEDS: HONEY 1 APPL/ML TUBE TP SCH (08:34)
[2018-02-21] MEDS ORDERED: LETAIRIS 5 MG PO SCH (09:00)
[2018-02-21] MEDS ORDERED: TADALAFIL 20 MG PO SCH (09:00)
[2018-02-21] MEDS ORDERED: PANTOPRAZOLE SODIUM 40 MG TABLET.DR PO SCH (09:00)
[2018-02-21] MEDS ORDERED: HYDROXYCHLOROQUINE SULFATE 200 MG TAB PO SCH (09:00)
[2018-02-21] MEDS ORDERED: FERROUS SULFATE 325 MG TABLET.DR PO SCH (09:00)
[2018-02-21] MEDS ORDERED: PREDNISONE 5 MG TABLET PO SCH (09:00)
[2018-02-21 10:43] VITALS: BP 151/61
[2018-02-21 11:59] LABS: HEMATOCRIT 31.2 % (36-48); MEAN CORPUSCULAR HEMOGLOBIN 31.7 pg (27.0-33.0); MEAN CORPUSCULAR HGB CONC 33.6 g/dL (32.0-36.0); MEAN CORPUSCULAR VOLUME 94.4 fL (79-99); PLATELET COUNT (AUTO) 134 K/uL (130-400); RED BLOOD CELL COUNT(AUTO) 3.31 MIL/uL (4.00-5.50); RED CELL DISTRIBUTION WIDTH 16.5 % (11.0-15.5); WHITE BLOOD COUNT (AUTO) 9.1 K/uL (4.8-10.8)
[2018-02-21 12:01] LABS: POTASSIUM 3.7 mmol/L (3.5-5.1)
[2018-02-21] MEDS: ACETAMINOPHEN EXTRA STRENGTH 500 MG TABLET PO SCH (13:45)
[2018-02-21 15:16] VITALS: BP 116/58
[2018-02-21] MEDS: ACETAMINOPHEN-CODEINE 300/30MG TAB PO PRN (15:28)
== END 2018-02-21 18:45 | disposition home or self-care (01) | DRG 720 ==
LOC: EDH 16:05 → EDHIP 16:06 → 3CH 21:23
PROVIDERS: ADMIT Internal Medicine Nephrology; ATTEND Internal Medicine Nephrology
DX: A41.9 Sepsis, unspecified organism (principal); E44.0 Moderate protein-calorie malnutrition; K74.60 Unspecified cirrhosis of liver; E87.1 Hypo-osmolality and hyponatremia; D64.9 Anemia, unspecified; E66.9 Obesity, unspecified; N39.0 Urinary tract infection, site not specified; K29.70 Gastritis, unspecified, without bleeding; E86.1 Hypovolemia; M19.90 Unspecified osteoarthritis, unspecified site; I10 Essential (primary) hypertension; K21.9 Gastro-esophageal reflux disease without esophagitis; Z88.8 Allergy status to other drugs, medicaments and biological substances; Z68.38 Body mass index [BMI] 38.0-38.9, adult
CPT/HCPCS: 36415; 71045; 74176; 80048; 80053; 81001; 82948; 83605; 83690; 83880; 83930; 83935; 84300; 84443; 85025; 85027; 87040; 87088; 87804; 87880; 93005; A4218; J0696; J1940; J2175; J2405; J3490; J7030; J7042; J7512; J7517